=== PATIENT | female | born 1975 | race Hispanic/Latino ===

== ENCOUNTER 2019-10-20 11:45 | Emergency (ER) | payer SELFPAY ==
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
[2019-10-20] MEDS ORDERED: ACETAMINOPHEN-CAFF-BUTALBITAL 1 EA TAB PO STA (13:32)
[2019-10-20] MEDS ORDERED: ACETAMINOPHEN-CAFF-BUTALBITAL 1 EA TAB ONE (13:33)
[2019-10-20 13:48] VITALS: BP 132/67; TEMP 97.6; O2SAT 98
== END 2019-10-20 13:46 | disposition home or self-care (01) ==
LOC: ER 11:45
DX: R51 Headache (principal); M54.2 Cervicalgia; I10 Essential (primary) hypertension; V58.6XXA Passenger in pick-up truck or van injured in noncollision transport accident in traffic accident, initial encounter; Y92.410 Unspecified street and highway as the place of occurrence of the external cause